=== PATIENT | female | born 1995 | race Two or more races ===

== ENCOUNTER 2020-09-22 21:19 | Inpatient (IN) | payer SELFPAY ==
[2020-09-22] MEDS ORDERED: Furosemide 40 MG/4 ML VIAL ONE (22:12)
[2020-09-22 22:58] LABS: Anion Gap 13 mmol/L (10-20); BUN (Urea Nitrogen) 37 mg/dL (7.0-18.7); Calc. Creatinine Clearance 0 mL/min (70-130); Calcium 7.8 mg/dL (7.8-10.44); Carbon Dioxide 21 mmol/L (22-29); Chloride 111 mmol/L (98-107); Glucose 178 mg/dL (70-105); Potassium 4.1 mmol/L (3.5-5.1); Sodium 141 mmol/L (136-145)
[2020-09-23] MEDS ORDERED: Ondansetron ODT 4 MG TAB SL PRN (00:30)
[2020-09-23] MEDS ORDERED: Acetaminophen 325 MG TAB PO PRN ×2 (00:30→20:40)
[2020-09-23] MEDS ORDERED: Ondansetron PF 4 MG/2 ML Vial IVP PRN (00:30)
[2020-09-23 01:38] LABS: Troponin I 0.026 ng/mL (< 0.028)
[2020-09-23] MEDS ORDERED: HumaLOG 300 UNITS/3 ML VIAL SC PRN ×2 (01:48→09:25)
[2020-09-23] MEDS ORDERED: Dextrose 50% Abboject 50 ML SYRINGE SLOW IVP PRN (01:48)
[2020-09-23] MEDS ORDERED: Dextrose 5% in Water 1,000 ML IV PRN (01:48)
--- NOTE | 2020-09-23 02:05 | PDOC.HHP ---
Hospitalist HPI - History of Present Illness Shortness of breath History of Present Illness: This is a 25-year-old female patient with a history of diabetes mellitus, hypertension and CKD who was transferred from [place] on account of possible bilateral pneumonia. For her diabetes and hypertension is unclear whether she has been adherent to her medication Patient notes that for the past couple of weeks she has been having worsening shortness of breath and more recently intermittent cough. She also notes swelling of his feet which progressed all the way to her thigh. She went to [place] where she was assessed to have possible bilateral pneumonia with concerns for Covid. She was started on ceftriaxone and azithromycin. She had elevated blood pressures also received labetalol and Solu-Medrol. Her D-dimer was elevated at 2.86 and she was given 80 mg Lovenox subcut. She was transferred here for higher level care. At presentation here it was noted her BNP was significantly elevated at 837, troponin was 0.014. Creatinine was 2.85 from a baseline of 1.08 on 05/22/2019. Her Covid test turned out negative. She was given 20 mg Lasix and she diuresed over 2 L. She feels significantly better thereafter. Hospitalist team was consulted to admit for new onset heart failure. Hospitalist ROS - Review of Systems Constitutional: reports: malaise. denies: fever, chills, sweats, weakness Respiratory: reports: cough, shortness of breath, SOB with excertion. denies: hemoptysis Cardiovascular: denies: chest pain, palpitations, orthopnea, paroxysmal noc. dyspnea Gastrointestinal: denies: nausea, vomiting, abdominal pain, diarrhea Genitourinary: reports: other (Polyuria). denies: dysuria, frequency, incontinence, hematuria Neurological: denies: weakness, numbness, incoordination, change in speech All other systems reviewed; all pertinent +/- noted in HPI/Subj Hospitalist History - Past Medical History Other Medical History: Diabetes, hypertension, CKD - Past Surgical History Past Surgical History: reports: no pertinent history Other Surgical History: None - Family History Family History: reports: no pertinent history - Social History Smoking Status: Never smoker Alcohol: reports: None Drugs: reports: none Living Situation: With Family Activity level: independent ambulation - Exam General Appearance: awake alert Eye: PERRL, anicteric sclera ENT: normocephalic atraumatic Neck: supple, symmetric, no JVD Heart: RRR, no murmur, no gallops, no rubs Respiratory: CTAB, no wheezes, no rales, no ronchi Gastrointestinal: soft, non-tender, non-distended, normal bowel sounds Extremities: no cyanosis, no clubbing, 1+ LE edema Neurological: cranial nerve grossly intact, no weakness, no focal deficits Musculoskeletal: normal tone, normal strength, no muscle wasting Psychiatric: normal affect, normal behavior, A&O x 3 Hospitalist Results - Labs Result Diagrams: 09/24/20 04:25 09/24/20 04:25 Lab results: Sodium 141 mmol/L (136-145) 09/22/20 22:30 Potassium 4.1 mmol/L (3.5-5.1) 09/22/20 22:30 Chloride 111 mmol/L (98-107) H 09/22/20 22:30 Carbon Dioxide 21 mmol/L (22-29) L 09/22/20 22:30 BUN 37 mg/dL (7.0-18.7) H 09/22/20 22:30 Creatinine 2.85 mg/dL (0.6-1.1) H 09/22/20 22:30 Glucose 178 mg/dL (70-105) H 09/22/20 22:30 Calcium 7.8 mg/dL (7.8-10.44) 09/22/20 22:30 Troponin I 0.026 ng/mL (< 0.028) 09/23/20 01:05 B-Natriuretic Peptide 837.7 pg/mL (0-100) H 09/22/20 22:31 Hospitalist H&P A/P - Plan Plan: This a 25-year-old female patient with a history of diabetes mellitus, CKD and hypertension who presents with worsening shortness of breath. Chest x-ray, elevated BNP and symptoms relieved with diuresis suggests new onset CHF. New onset CHF Edema, elevated D-dimer with congestion on chest x-ray Unclear etiologypossibly uncontrolled hypertension, check urine drug screen Received Lasix with improvement Continue diuresis Monitor on telemetry Daily weights, monitor electrolytes Input output monitoring Cardiology consult in a.m. MERLYN on CKD Creatinine elevated to 2.85 from around 1. Likely cardiorenal Continue diuresis Monitor BMP in a.m. Renal consult if worsens. Diabetes mellitus Start correctional insulin Monitor glucose Hypertension Resume home BP medications once verified. Elevated D-dimer Received note Lovenox in [place] Renal function poorunable to do CTA Consider VQ scan in a.m. to rule out PE VT prophylaxisHeparin CODE STATUSfull code
[2020-09-23 04:59] LABS: Anion Gap 12 mmol/L (10-20); BUN (Urea Nitrogen) 35 mg/dL (7.0-18.7); Calc. Creatinine Clearance 0 mL/min (70-130); Calcium 7.6 mg/dL (7.8-10.44); Carbon Dioxide 18 mmol/L (22-29); Chloride 113 mmol/L (98-107); Glucose 168 mg/dL (70-105); Magnesium 2.3 mg/dL (1.6-2.6); Mean Corpuscular HGB CONC 31.2 g/dL (32.0-36.0); Mean Corpuscular Hemoglobin 23.2 pg (27.0-31.0); Mean Corpuscular Volume 74.4 fL (78.0-98.0); Mean Platelet Volume 10.6 fL (7.4-10.4); Platelet Count 252 thou/uL (130-400); RBC Distribution Width 17.3 % (11.5-14.5); Red Blood Cell (RBC) Count 3.02 mill/uL (4.20-5.40); Sodium 139 mmol/L (136-145); White Blood Cell (WBC) Count 10.1 thou/uL (4.8-10.8)
[2020-09-23 05:04] LABS: Troponin I 0.019 ng/mL (< 0.028)
[2020-09-23 05:41] LABS: #Basophils 0.1 thou/uL (0.0-0.2); #Eosinphils 0.2 thou/uL (0.0-0.7); #Lymphocytes 3.1 thou/uL (1.20-3.40); #Monocytes 0.6 thou/uL (0.11-0.59); #Neutrophils 6.2 thou/uL (1.40-6.50); %Basophils 0.7 % (0.0-1.0); %Lymphocytes 30.9 % (21.0-51.0); %Monocytes 5.5 % (0.0-10.0); %Neutrophils 60.8 % (42.0-75.0); Anisocytosis SLIGHT = 6-15 cells (100X) (0-5/hpf); Hypochromia SLIGHT = 6-15 cells (100X) (0-5/hpf); MDiff Complete? YES; Microcytosis SLIGHT = 6-15 cells (100X) (0-5/hpf); Schistocytes SLIGHT = 2-5 cells (100X) (0-1/hpf)
[2020-09-23] MEDS ORDERED: Amlodipine 10 MG TAB PO SCH (09:00)
[2020-09-23] MEDS ORDERED: Aspirin Chewable 81 MG TAB PO SCH (09:00)
[2020-09-23] MEDS ORDERED: Carvedilol 3.125 MG TAB PO SCH (09:00)
[2020-09-23] MEDS ORDERED: Heparin 5,000 UNITS/ML VIAL SC SCH (09:00)
[2020-09-23] MEDS ORDERED: Enoxaparin Sodium 80 MG/0.8 ML SYRINGE SC SCH ×3 (09:00→21:00)
[2020-09-23] MEDS ORDERED: Furosemide 40 MG/4 ML VIAL SLOW IVP SCH ×2 (09:00)
--- NOTE | 2020-09-23 09:33 | PDOC.HOSPP ---
- Subjective Encounter Date: 09/23/20 Encounter Time: 09:31 Subjective: Patient seen and examined. No new complaints. No overnight events. Patient says she is feeling much better. She is able to breath when laying flat. Still endorses mild SOB and swelling to LEs. Denies chest pain, heart palpitations, light headedness, abdominal pain, N/V/D. Denies urinary symptoms. Discussed labwork. No further questions at this time. - Objective Vital Signs & Weight: Vital Signs (12 hours) Temp Pulse Resp BP Pulse Ox 09/23/20 00:00 98.7 F 110 H 17 168/102 H 99 Weight Weight 177 lb Result Diagrams: 09/23/20 04:20 09/23/20 04:20 Additional Labs: Accuchecks 09/23/20 05:45 POC Glucose 145 H Radiology Reviewed by me: Yes (cxr) Hospitalist ROS - Review of Systems Constitutional: denies: fever, chills All other systems reviewed; all pertinent +/- noted in HPI/Subj - Medication Medications: Medication Instructions Recorded Confirmed Type HumaLOG 0 unit SC ASDIR 09/23/20 09/23/20 History Insulin Glargine,Hum.Rec.Anlog 15 units SQ BID 09/23/20 09/23/20 History [Lantus] Lisinopril 30 mg PO DAILY 09/23/20 09/23/20 History Allergies No Known Drug Allergies Allergy (Unverified 09/23/20 00:20) Active Medications Aspirin (Aspirin Chewable 81 Mg Tab) 81 mg PO DAILY DAGMAR Carvedilol (Carvedilol 3.125 Mg Tab) 3.125 mg PO BID DAGMAR Dextrose/Water (Dextrose 50% Abboject 50 Ml Syringe) 25 gm SLOW IVP PRN PRN PRN Reason: Hypoglycemia Enoxaparin Sodium (Enoxaparin Sodium 80 Mg/0.8 Ml Syringe) 80 mg SC 2100 DAGMAR Furosemide (Furosemide 40 Mg Tab) 40 mg PO 0900,1400 DAGMAR Glucagon (Glucagon 1 Mg/Ml Vial) 1 mg IM PRN PRN PRN Reason: Hypoglycemia Hydralazine HCl (Hydralazine 20 Mg/Ml Vial) 10 mg SLOW IVP Q4H PRN PRN Reason: SBP > 180 Dextrose/Water (D5w) 1,000 mls @ 0 mls/hr IV .Q0M PRN PRN Reason: Hypoglycemia Insulin Glargine 15 units/ (Miscellaneous Medication) 0.15 mls @ 0 mls/hr SC QAM DAGMAR Insulin Glargine 15 units/ (Miscellaneous Medication) 0.15 mls @ 0 mls/hr SC HS DAGMAR Insulin Human Lispro (Humalog 300 Units/3 Ml Vial) 0 units SC .MILD SLIDING SCALE PRN PRN Reason: Mild Correctional Scale Insulin Human Lispro (Humalog 300 Units/3 Ml Vial) 0 units SC .BEDTIME SLIDING SC PRN PRN Reason: Bedtime Correctional Scale Ondansetron HCl (Ondansetron Pf 4 Mg/2 Ml Vial) 4 mg IVP Q6H PRN PRN Reason: Nausea/Vomiting Stop: 09/23/20 11:10 Ondansetron HCl (Ondansetron Odt 4 Mg Tab) 4 mg SL Q6H PRN PRN Reason: Nausea/Vomiting Stop: 09/23/20 11:10 Vital Signs (12 hours) Temp Pulse Resp BP Pulse Ox 09/23/20 00:00 98.7 F 110 H 17 168/102 H 99 Weight Weight 177 lb 09/23/20 01:27 Resuscitation Status Routine Resuscitation Status: FULL: Full Resuscitation - Exam General Appearance: NAD, awake alert. negative: ill appearing Eye: anicteric sclera ENT: normocephalic atraumatic Neck: supple, no JVD Heart: no murmur, no gallops, no rubs, normal peripheral pulses Heart - other findings: tachycardia Respiratory: no wheezes, no ronchi, no tachypnea, rales Gastrointestinal: soft, non-tender, non-distended, normal bowel sounds, no guarding, no rigidity Extremities: 2+ LE edema Skin: no rashes Neurological: no focal deficits Musculoskeletal: normal tone, normal strength Psychiatric: normal affect, A&O x 3 Hosp A/P (1) Acute exacerbation of CHF (congestive heart failure) Code(s): I50.9 - HEART FAILURE, UNSPECIFIED Status: Acute (2) Acute kidney injury superimposed on chronic kidney disease Code(s): N17.9 - ACUTE KIDNEY FAILURE, UNSPECIFIED; N18.9 - CHRONIC KIDNEY DISEASE, UNSPECIFIED Status: Acute (3) Shortness of breath Code(s): R06.02 - SHORTNESS OF BREATH Status: Acute (4) Elevated d-dimer Code(s): R79.89 - OTHER SPECIFIED ABNORMAL FINDINGS OF BLOOD CHEMISTRY Status: Acute (5) Diabetes mellitus type 2, insulin dependent Code(s): E11.9 - TYPE 2 DIABETES MELLITUS WITHOUT COMPLICATIONS; Z79.4 - [employer] (CURRENT) USE OF INSULIN Status: Chronic (6) Hypertension Code(s): I10 - ESSENTIAL (PRIMARY) HYPERTENSION Status: Chronic - Plan 25/F with PMH DM 2, HTN presents for SOB and BLE swelling. Patient is admitted to the telemetry floor, inpatient status. Expected length of stay greater than 2 midnights. 1. Acute exacerbation of CHF Unknown etiology. Upon examination, no acute distress. Per ER documentation, 2L UOP status post Lasix 40 mg IVP. Patient reports symptoms significantly improved. Start Lasix 40 mg IVP twice daily. Echocardiogram. Consult cardiology. Patient tachycardic, concerns for PE secondary to elevated D-dimer. Add low-dose beta-vielka, troponins flat, no signs cardiogenic shock. Hold LMWH secondary to anemia. Hold home dose PETE inhibitor for now. Daily weights, strict CARLOS, sodium restriction. Check TSH, FLP, PT/INR, serum , UDS pending. Recheck BMP this afternoon. 2. Acute kidney injury imposed on chronic kidney disease Reports recently completing multiple antibiotic regimens due to tooth infection in late June/early July. Reports taking ciprofloxacin amoxicillin clindamycin and moxifloxacin. Denies any consistent usage of NSAIDs or diuretics. Denies any recent throat infection. Takes Lisinopril 30mg daily at home, hold for now. Unclear etiology at this point prerenal d/t problem #1? Slight improvement in kidney function, will continue to diurese. Consult nephrology. Check urine Na and creatine for FENA calc. Check protein/AG ratio and CK level. Renal US. Covid Ab and auto immune panel. Check coags, serum hCG and TSH 3. Shortness of breath Likely related to problem #1. Covid test negative. Check Ab for problem #1/#2. No elevated WBCs, unlikely pneumonia. 4. Elevated D-dimer Upon assessment, patient still tachycardic. No acute respiratory distress. Denies any chest pain. Hold LMWH secondary to anemia. Given chest x-ray, VQ scan likely low yield at present time. Consider VQ/CTA chest if improvement of CXR or kidney function. 5. Microcytic anemia No overt signs of bleeding. Check iron studies, retic count. Check LDH, haptoglobin, bilirubin. T&S. 5. Diabetes type 2 Currently blood glucose 168. Takes Lantus 15/20 units twice daily at home. We will start Lantus 15 units twice daily. Add mild ISS. Accu-Cheks AC at bedtime. Check hemoglobin A1c. 6. Hypertension Chronic. Hold home dose lisinopril 30 mg daily for now secondary to MERLYN. Add low-dose BB. Check FLP, hemoglobin A1c. Add low-dose aspirin. No SCDs LMWH for DVT prophylaxis. CODE STATUS is Full code. Discussed case with attending physician, Dr. Gonzalez.
[2020-09-23 09:45] LABS: BHCG - Serum Negative (NEGATIVE); Pregs Control Background? CLEAR/WHITE (CLR/WHITE); Pregs Control Bar Appear? YES (CONTROL BAR)
[2020-09-23 09:49] LABS: PTT 34.3 sec (22.9-36.1); Prothrombin Time 13.6 sec (12.0-14.7)
[2020-09-23] MEDS ORDERED: Aspirin Chewable 81 MG TAB ONE (10:10)
[2020-09-23] MEDS ORDERED: Furosemide 40 MG TAB ONE ×2 (10:10→13:40)
[2020-09-23] MEDS: Insulin Glargine 15 UNITS in Pre-Filled Syringe 1 EACH SC SCH ×2 (10:14→22:36)
[2020-09-23] MEDS ORDERED: Furosemide 40 MG TAB PO SCH ×2 (10:15→14:00)
[2020-09-23 10:33] LABS: Reticulocyte Count 3.3 % (0.5-1.5)
[2020-09-23 11:10] LABS: ALT (SGPT) 17 U/L (8-55); AST (SGOT) 8 U/L (5-34); Albumin 2.7 g/dL (3.5-5.0); Alkaline Phosphatase 60 U/L (40-110); Bilirubin, Direct 0.1 mg/dL (0.1-0.3); Bilirubin, Total 0.2 mg/dL (0.2-1.2); CK (CPK) 202 U/L (29-168); Iron 24 ug/dL (50-170); Iron Binding Capacity, Total 260 mcg/dL (265-497)
[2020-09-23 12:49] LABS: Albumin 2.7 g/dL (3.5-5.0); Anion Gap 17 mmol/L (10-20); BUN (Urea Nitrogen) 32 mg/dL (7.0-18.7); Calc. Creatinine Clearance 42 mL/min (70-130); Calcium 7.5 mg/dL (7.8-10.44); Carbon Dioxide 13 mmol/L (22-29); Chloride 115 mmol/L (98-107); Globulin 2.9 g/dL (2.4-3.5); Glucose 134 mg/dL (70-105); Potassium 4.3 mmol/L (3.5-5.1); Protein, Total 5.6 g/dL (6.0-8.3); Sodium 141 mmol/L (136-145)
[2020-09-23 12:52] LABS: Medtox Reader # READER 1; THC/Cannabinoid Screen Detected (NotDetected)
[2020-09-23 12:53] LABS: Amphetamine Not Detected (NotDetected); Barbiturates Screen Not Detected (NotDetected); Benzodiazepine Screen Not Detected (NotDetected); Cocaine Metabolite Screen Not Detected (NotDetected); Medtox Control Line Valid? VALID (VALID); Methadone Not Detected (NotDetected); Methamphetamine Not Detected (NotDetected); Opiate Screen Detected (NotDetected); Oxycodone Screen Not Detected (NotDetected); Phencyclidine (PCP) Not Detected (NotDetected); Tricyclic Screen Not Detected (NotDetected)
[2020-09-23 12:58] LABS: Creatinine, Urine 68.07 mg/dL (47-110)
[2020-09-23] MEDS: Bicitra 30 ML UDCUP PO SCH ×3 (13:59→21:11)
[2020-09-23] MEDS: Iron, Sodium Ferric Gluconate 250 MG in Sodium Chloride 0.9% 100 ML IVPB SCH (13:59)
[2020-09-23] MEDS ORDERED: Bicitra 30 ML UDCUP PO SCH (14:00)
--- NOTE | 2020-09-23 14:35 | ULT ---
Renal sonogram HISTORY: Renal insufficiency. FINDINGS: The right kidney is 12.4 cm length and the left 12.3 cm. Each has a normal appearance without evidenc e of mass, stone, or hydronephrosis. Small amount of fluid is incidentally noted at the inferior aspect of each hemithorax. IMPRESSION : No renal abnormalities are demonstrated. Small bilateral pleural effusions
[2020-09-23 16:59] LABS: SARS-CoV-2 IgG Ab Reactive (NonReactive); SARS-CoV-2 IgG Index 2.93 S/CO (< 1.40)
[2020-09-23] MEDS ORDERED: NIFEdipine XL 30 MG TAB PO SCH (18:15)
[2020-09-23 19:36] VITALS: BMI 36.4
[2020-09-23] MEDS: Carvedilol 6.25 MG TAB PO SCH (21:12)
[2020-09-23] MEDS: hydrALAZINE 20 MG/ML VIAL SLOW IVP PRN (22:35)
--- NOTE | 2020-09-23 22:51 | CON ---
DATE OF CONSULTATION: 09/23/2020 REASON FOR CONSULTATION: Hypertension, diabetes, possible heart failure. HISTORY OF PRESENT ILLNESS: Ms. Bee is a 25-year-old woman. The patient came to the hospital complaining of shortness of breath, but she tells me actually it was primarily a cough. She also noticed some swelling of her feet. The patient had possible bilateral pneumonia on chest x-ray. There was some initial concern for COVID. She was given antibiotics and transferred here. Her D-dimer was also elevated. She was found to have a BNP of 837, troponin 0.04. Creatinine was 1.08 in May 2019, now 2.85. She is given Lasix and diuresed 2 L, felt better. HOME MEDICINES: Lisinopril. She is also taking insulin. OTHER PAST HISTORY: Recent infection of her jaw below a tooth requiring some oral surgery recently done successfully. Diabetes for about nine years, hypertension for about nine years. REVIEW OF SYSTEMS: CONSTITUTIONAL: No significant weight gain or loss. VISION: No changes. HEARING: No changes. PULMONARY: Positive for cough. Previously short of breath, not short of breath now. NEUROLOGIC: No unilateral weakness or numbness. PHYSICAL EXAMINATION: GENERAL: This is a pleasant woman. VITAL SIGNS: 5 feet 6 inches tall, 177 pounds. Blood pressure 182/111, pulse 100. NECK: Veins normal. Carotid, normal upstrokes. LUNGS: Clear. CARDIAC: Normal S1, normal S2. I do not hear murmur, rub, or gallop. ABDOMEN: Obese, nontender. EXTREMITIES: No clubbing or cyanosis. There is 1+ edema. LABORATORY STUDIES: Echocardiogram showed left ventricular hypertrophy with an ejection fraction only very mildly diminished at 45-50%, but there is moderate to severe left ventricular hypertrophy. EKG reveals sinus rhythm, no acute changes. ASSESSMENT: 1. Hypertension, uncontrolled. 2. Diabetes. 3. Congestive heart failure as evidenced by increased BNP at 837, systolic-diastolic mix, mostly diastolic. 4. Iron deficiency anemia with a ferritin level extremely low at 28 and a hemoglobin of 7. PLAN: 1. Agree with intravenous iron. 2. Hold anticoagulation in view of anemia. 3. Hold aspirin in view of iron deficiency anemia, unlikely to have coronary disease at this age. 4. Agree with carvedilol. 5. We will start Procardia XL, it should be helpful with her high blood pressure, it looks like probably her main problem from a heart standpoint is hypertension, also contributory factor likely is anemia. Job ID: [id number]
[2020-09-24] MEDS: Iron, Sodium Ferric Gluconate 250 MG in Sodium Chloride 0.9% 100 ML IVPB SCH (00:15)
[2020-09-24] MEDS: hydrALAZINE 20 MG/ML VIAL SLOW IVP PRN (04:35)
[2020-09-24 04:42] LABS: #Basophils 0.1 thou/uL (0.0-0.2); #Eosinphils 0.3 thou/uL (0.0-0.7); #Lymphocytes 1.8 thou/uL (1.20-3.40); #Monocytes 0.5 thou/uL (0.11-0.59); #Neutrophils 6.9 thou/uL (1.40-6.50); %Basophils 0.9 % (0.0-1.0); %Eosinophils 3.5 % (0.0-10.0); %Lymphocytes 18.2 % (21.0-51.0); %Monocytes 5.6 % (0.0-10.0); %Neutrophils 71.8 % (42.0-75.0); Hemoglobin 7.4 g/dL (12.0-16.0); Mean Corpuscular HGB CONC 30.2 g/dL (32.0-36.0); Mean Corpuscular Hemoglobin 22.3 pg (27.0-31.0); Mean Platelet Volume 10.9 fL (7.4-10.4); Platelet Count 260 thou/uL (130-400); RBC Distribution Width 17.3 % (11.5-14.5); Red Blood Cell (RBC) Count 3.32 mill/uL (4.20-5.40); White Blood Cell (WBC) Count 9.6 thou/uL (4.8-10.8)
[2020-09-24 04:46] LABS: Hemoglobin A1c 5.7 % (4.0-6.0)
[2020-09-24 05:08] LABS: Albumin 2.6 g/dL (3.5-5.0); Anion Gap 13 mmol/L (10-20); BUN (Urea Nitrogen) 30 mg/dL (7.0-18.7); BUN/Creatinine Ratio 14.02; Calc. Creatinine Clearance 63 mL/min (70-130); Calcium 7.9 mg/dL (7.8-10.44); Carbon Dioxide 20 mmol/L (22-29); Cardiac Risk 4.4 (Less than 4.5); Chloride 111 mmol/L (98-107); Cholesterol 176 mg/dl (< 200 Desired); Glucose 130 mg/dL (70-105); HDL Cholesterol 40 mg/dL (>60 Neg Risk); LDL Cholesterol, Calculated 106 mg/dL; Phosphorus 4.1 mg/dL (2.3-4.7); Potassium 3.8 mmol/L (3.5-5.1); Sodium 140 mmol/L (136-145); Triglycerides 149 mg/dL (Less than 150)
[2020-09-24] MEDS ORDERED: Furosemide 20 MG/2 ML VIAL SLOW IVP SCH ×2 (06:00→18:00)
--- NOTE | 2020-09-24 07:21 | CON ---
DATE OF CONSULTATION: CONSULTING PHYSICIAN: Hao Mendoza MD REASON FOR CONSULTATION: Acute on chronic kidney disease and generalized body swelling. IMPRESSION: 1. Acute on chronic kidney disease. 2. Chronic kidney disease, likely in the context of diabetic nephropathy. 3. Generalized anasarca, likely in the context of the proteinuria from diabetic nephropathy. 4. Severe anemia in the context of iron deficiency and possibly anemia of chronic kidney disease. 5. Metabolic acidosis, possibly in the context of chronic kidney disease. PLAN: 1. Low-salt diet. 2. Parenteral diuresis. 3. Renal function panel as opposed to basic metabolic panel, also check parathyroid hormone and vitamin D level. 4. Parenteral iron infusion to increase the iron load of this patient, plus or minus erythropoiesis stimulating agents. 5. We will check the spot urine protein and creatinine to assess the degree of proteinuria in this patient and treat accordingly. 6. Further management to be dependent on the clinical course. The patient is already on sodium to address the metabolic acidosis. HISTORY OF PRESENT ILLNESS: A 25-year-old female patient who presented here with generalized body swelling and shortness of breath and on close evaluation, noted to have evidence of metabolic acidosis and possibly baseline chronic kidney disease. She has been evaluated with the echocardiogram which showed mildly depressed ejection fraction with concentric hypertrophy diastolic dysfunction. As a result of the findings involving the renal panel, decision was taken to involve Renal in the management of this case. The patient denies any hematuria nor any frothy urine. PAST MEDICAL HISTORY: Significant for diabetes mellitus in the age of 16, hypertension, chronic kidney disease. FAMILY HISTORY: Significant for an uncle also had problem with kidney . SOCIAL HISTORY: No alcohol, no tobacco, no illicit drug use. REVIEW OF SYSTEMS: As documented in the body of the history. All the other systems were reviewed and found not to be significantly related to present illness. PHYSICAL EXAMINATION: VITAL SIGNS: The patient was found to have evidence of generalized body swelling with the following vital signs. Afebrile, temperature 99.6, pulse 99, respiratory rate of 18, blood pressure 182/111, O2 saturation of 97% on room air. HEENT: Unremarkable. CARDIOVASCULAR SYSTEM: First and second heart sounds were heard. RESPIRATORY SYSTEM: Clear to auscultation. DIGESTIVE SYSTEM: Revealed an obese abdomen. EXTREMITIES: Showed peripheral edema, 2 to 3+ SUMMARY: A 25-year-old female patient who presented here with generalized anasarca, shortness of breath. Thank you for this consultation. We will follow with you. Job ID: [id number]
[2020-09-24] MEDS ORDERED: NIFEdipine XL 30 MG TAB PO SCH (09:00)
[2020-09-24] MEDS ORDERED: IRON SUCROSE COMPLEX 100 MG/5 ML SLOW IVP SCH (09:00)
[2020-09-24] MEDS ORDERED: Ondansetron PF 4 MG/2 ML Vial IVP PRN (09:31)
[2020-09-24] MEDS: Carvedilol 6.25 MG TAB PO SCH ×2 (09:39→20:53)
[2020-09-24] MEDS: Insulin Glargine 15 UNITS in Pre-Filled Syringe 1 EACH SC SCH ×2 (09:41→20:54)
[2020-09-24] MEDS: Bicitra 30 ML UDCUP PO SCH ×4 (09:42→20:53)
[2020-09-24] MEDS: Iron, Sodium Ferric Gluconate 125 MG in Sodium Chloride 0.9% 100 ML IVPB SCH (10:00)
--- NOTE | 2020-09-24 14:31 | PRG ---
DATE OF SERVICE: 09/24/2020 SUBJECTIVE: Ms. Bee is feeling better. She has been diuresing very well. OBJECTIVE: VITAL SIGNS: Blood pressure is improving. It is 167/100. It is more than 190 systolic yesterday, 190/110. Pulse is improving. It is in the 90s. It was about 100 to 110 yesterday. LUNGS: Clear. CARDIAC: Normal S1, normal S2. No murmur, rub, or gallop. ABDOMEN: Obese, nontender. EXTREMITIES: Still moderate edema. ASSESSMENT: 1. Congestive heart failure, systolic diastolic mixed, mostly diastolic likely related to hypertension. 2. Renal failure, improving. Creatinine has gone from 2.85 down to 2.14. PLAN: 1. She is still volume overloaded. I would give her one additional dose of Lasix 20 mg. 2. She has been given iron. She is iron deficient and has an iron deficiency anemia. She will need oral iron as well. 3. Possibly could be released home tomorrow. Job ID: [id number]
--- NOTE | 2020-09-24 18:06 | PDOC.HOSPP ---
- Subjective Encounter Date: 09/24/20 Encounter Time: 09:00 Subjective: F/u: CHF The patient states her shortness of breath has improved. She is now able to lean back more at 45 degrees which she wasn't able to do before. She has no significant cough She has had multiple tooth infections, last antibiotics were taken in July. She denies jaw pain currently - Objective Vital Signs & Weight: Vital Signs (12 hours) Temp Pulse Pulse Pulse Resp BP BP 09/24/20 15:40 98.9 F 109 H 16 09/24/20 11:15 98.7 F 99 16 09/24/20 09:18 112 H 108 H 185/99 H 190/91 H 09/24/20 07:40 98.9 F 109 H 16 BP Pulse Ox 09/24/20 15:40 172/96 H 97 09/24/20 11:15 167/100 H 98 09/24/20 09:18 09/24/20 07:40 179/90 H 95 Weight Weight 223 lb 9.6 oz I&O: 09/23/20 09/24/20 09/25/20 06:59 06:59 06:59 Intake Total 1600 1000 Balance 1600 1000 Result Diagrams: 09/24/20 04:25 09/24/20 04:25 Additional Labs: Accuchecks 09/24/20 09/24/20 09/24/20 16:27 10:57 05:25 POC Glucose 118 H 106 H 127 H 09/23/20 21:00 POC Glucose 136 H Hospitalist ROS - Review of Systems Constitutional: denies: fever, chills - Medication Medications: Active Medications Generic Name Dose Route Start Last Admin Trade Name Chipq PRN Reason Stop Dose Admin Acetaminophen 650 mg 09/23/20 20:40 09/24/20 09:49 Acetaminophen 325 Mg Tab PO 650 mg Q6H PRN Administration Fever>101/(Mi/Mod/Sev) Pain Carvedilol 6.25 mg 09/23/20 21:00 09/24/20 09:39 Carvedilol 6.25 Mg Tab PO 6.25 mg BID DAGMAR Administration Citric Acid/Sodium Citrate 30 ml 09/23/20 13:00 09/24/20 17:57 Bicitra 30 Ml Udcup PO 30 ml PCHS DAGMAR Administration Hydralazine HCl 10 mg 09/23/20 02:26 09/24/20 04:35 Hydralazine 20 Mg/Ml Vial SLOW IVP 10 mg Q4H PRN Administration SBP > 180 Insulin Glargine 15 units/ 0.15 mls @ 0 mls/hr 09/23/20 09:00 09/24/20 09:41 Miscellaneous Medication SC 0.15 mls QAM DAGMAR Administration Insulin Glargine 15 units/ 0.15 mls @ 0 mls/hr 09/23/20 21:00 09/23/20 22:36 Miscellaneous Medication SC 0.15 mls HS DAGMAR Administration Ferric Sodium Gluconate 110 mls @ 110 mls/hr 09/24/20 09:00 09/24/20 10:00 Complex 125 mg/ Sodium IVPB 110 mls Chloride DAILY DAGMAR Administration Ondansetron HCl 4 mg 09/24/20 09:31 09/24/20 09:42 Ondansetron Pf 4 Mg/2 Ml Vial IVP 4 mg Q6H PRN Administration Nausea/Vomiting - Exam General Appearance: NAD, awake alert Eye: PERRL, anicteric sclera ENT: normocephalic atraumatic, no oropharyngeal lesions Neck: no JVD Heart: RRR, no murmur, no gallops, no rubs Respiratory: CTAB, no wheezes, no rales, no ronchi Gastrointestinal: soft, non-tender, non-distended, normal bowel sounds Extremities: no cyanosis, no clubbing, 2+ LE edema Skin: normal turgor, no lesions, no rashes Hosp A/P - Plan Chest Xray: bilateral ground glass opacities Thi sis a 25 year old female who presented with shortness of breath, cough and leg swelling. She was diagnosed with systolic heart failure. SHe is being diuresed with IV lasix 1. Acute systolic and diastolic CHF - ECHO showed EF 45-50% with moderate MR, grade 3 diastolic dysfunction. - continue IV lasix for additional dose. She is on room air . Repeat chest Xray to evaluate for improvement 2. MERLYN - improving, creatinine down to 2.1, baseline is around 1 last year. 3. Severe anemia likely iron deficiency - ferritin level is 23. Will start iron supplementation. GI consultation if any GI bleeding 4. Type II diabetes - controlled, hemoglobin A1C 5.7. Continue lantus 15 units SC BID 5. Hypertension - continue coreg. Nifedipine added by cardiology . Will add hydralazine 25 mg tid if BP still uncontrolled with this 6. Possible recent COVID infection - chest Xray shows bilateral ground glass opacities. She has positive COVID IGG. Will repeat chest X ray today
[2020-09-24] MEDS ORDERED: hydrALAZINE 25 MG TAB PO PRN (18:11)
--- NOTE | 2020-09-24 18:43 | PRG ---
DATE OF SERVICE: 09/24/2020 OBJECTIVE: VITAL SIGNS: The patient noted with the following vital signs; afebrile, temperature 98.9, pulse 99, respiratory rate of 16, O2 saturations of 97%, and blood pressure 172/96. HEENT: Unremarkable. CARDIOVASCULAR SYSTEM: First and second heart sounds were heard. RESPIRATORY SYSTEM: Clear to auscultation. DIGESTIVE SYSTEM: Revealed obese abdomen. EXTREMITIES: Showed some peripheral edema. SKIN: No new gross rash. LYMPHATICS: No peripheral lymphadenopathy. IMPRESSION: 1. Nephrotic range proteinuria in the context of problem #2. 2. Diabetic nephropathy. 3. Iron deficiency anemia. 4. Anasarca. PLAN: 1. Continue diuresis. 2. The patient's beta blockade probably needs to be adjusted. However, the tachyarrhythmia may be also related to the anemic state of this patient. 3. Renally dose all medications per low GFR. 4. Outpatient Nephrology followup status post discharge strongly recommend. Job ID: [id number]
[2020-09-24] MEDS ORDERED: Ferrous Sulfate 325 MG TAB PO SCH (18:45)
--- NOTE | 2020-09-24 18:50 | RAD ---
Exam: Chest one view HISTORY:Follow-up pulmonary edema. Comparison: 09/21/2020 FINDINGS: Cardiac silhouette:Cardiomegaly. Aorta: Unremarkable Pulmonary vessels: Normal Costophrenic angles: Clear LUNGS: Improved but persistent interstitial opacities. Pneumothorax: None Osseous abnormalities: None IMPRESSION: Improved but persistent interstitial opacities. Improving edema. Continued surveillance.
[2020-09-24] MEDS ORDERED: Ferrex 150 Plus (iron poly cmplx) PO SCH (21:00)
[2020-09-25 04:42] LABS: #Eosinphils 0.3 thou/uL (0.0-0.7); #Lymphocytes 2.1 thou/uL (1.20-3.40); #Monocytes 0.8 thou/uL (0.11-0.59); %Basophils 0.4 % (0.0-1.0); %Eosinophils 3.6 % (0.0-10.0); %Lymphocytes 22.8 % (21.0-51.0); %Monocytes 8.7 % (0.0-10.0); %Neutrophils 64.5 % (42.0-75.0); Hemoglobin 7.3 g/dL (12.0-16.0); Mean Corpuscular HGB CONC 31.1 g/dL (32.0-36.0); Mean Corpuscular Hemoglobin 23.1 pg (27.0-31.0); Mean Corpuscular Volume 74.4 fL (78.0-98.0); Mean Platelet Volume 10.6 fL (7.4-10.4); Platelet Count 267 thou/uL (130-400); Red Blood Cell (RBC) Count 3.15 mill/uL (4.20-5.40); White Blood Cell (WBC) Count 9.3 thou/uL (4.8-10.8)
[2020-09-25 04:59] LABS: Albumin 2.5 g/dL (3.5-5.0); Anion Gap 12 mmol/L (10-20); BUN (Urea Nitrogen) 24 mg/dL (7.0-18.7); BUN/Creatinine Ratio 12.24; Calc. Creatinine Clearance 69 mL/min (70-130); Carbon Dioxide 22 mmol/L (22-29); Chloride 111 mmol/L (98-107); Glucose 93 mg/dL (70-105); Phosphorus 4.5 mg/dL (2.3-4.7); Potassium 3.6 mmol/L (3.5-5.1); Sodium 141 mmol/L (136-145)
[2020-09-25] MEDS ORDERED: Furosemide 20 MG/2 ML VIAL SLOW IVP SCH (06:00)
[2020-09-25] MEDS: Ferrous Sulfate 325 MG TAB PO SCH ×2 (08:28→17:33)
[2020-09-25] MEDS: Carvedilol 6.25 MG TAB PO SCH (08:28)
[2020-09-25] MEDS ORDERED: Potassium Chloride 20 MEQ TAB PO SCH (08:30)
[2020-09-25] MEDS ORDERED: Carvedilol 6.25 MG TAB PO SCH (09:00)
[2020-09-25] MEDS ORDERED: NIFEdipine XL 30 MG TAB PO SCH (09:00)
[2020-09-25] MEDS: Insulin Glargine 15 UNITS in Pre-Filled Syringe 1 EACH SC SCH (09:35)
[2020-09-25] MEDS: Bicitra 30 ML UDCUP PO SCH ×2 (09:48→12:58)
[2020-09-25] MEDS: Iron, Sodium Ferric Gluconate 125 MG in Sodium Chloride 0.9% 100 ML IVPB SCH (09:52)
[2020-09-25 10:38] LABS: Antinuclear AB Negative (Negative); Complement-C3 (Sendout) 143 mg/dL (82-167); Complement-C4 (Sendout) 27 mg/dL (12-38); DSDNA Autoabs (FARR) Sendout 1 IU/mL (0-9); Smooth Muscle Total Antibodies <0.2 AI (0.0-0.9); Thyroid Peroxidase Ab-Sendout Less than 9 IU/mL (0-34); U1 RNP/snRNP IgG Autoabs 0.2 AI (0.0-0.9)
--- NOTE | 2020-09-25 12:54 | PDOC.HOSPP ---
- Subjective Encounter Date: 09/25/20 Encounter Time: 11:00 Subjective: CHF - patient reports significant improvement in shortness of breath. Anemia - patient is still anemic. She reports fatigue, didn't think much of it earlier , but does get tired doing a lot of activity. She reports going through 15 tampons a day, and four pads a day Left arm swelling - patient reports left arm swelling, states her IV blew in that area and she had some pain while moving her arm MERLYN - creatinine almost at baseline Diabetes - mother reports history of diabetes that was very uncontrolled in the past. She was started on insulin and has been on it for the past 9 years. A1C is 5.7. Her blood sugar was 79 this morning, so lantus was held - Objective Vital Signs & Weight: Vital Signs (12 hours) Temp Pulse Resp BP BP Pulse Ox 09/25/20 12:00 98.8 F 102 H 17 177/84 H 98 09/25/20 10:57 101 H 170/101 H 09/25/20 09:35 170/101 H 09/25/20 08:28 170/101 H 09/25/20 08:00 98.9 F 101 H 16 170/101 H 97 09/25/20 03:53 99.4 F 109 H 18 175/90 H 95 Weight Weight 222 lb 9.6 oz I&O: 09/24/20 09/25/20 09/26/20 06:59 06:59 06:59 Intake Total 1600 1360 Balance 1600 1360 Result Diagrams: 09/25/20 04:06 09/25/20 04:06 Additional Labs: Accuchecks 09/25/20 09/25/20 09/24/20 10:30 05:57 20:27 POC Glucose 95 79 147 H 09/24/20 16:27 POC Glucose 118 H Hospitalist ROS - Review of Systems Constitutional: denies: fever, chills - Medication Medications: Active Medications Generic Name Dose Route Start Last Admin Trade Name Freq PRN Reason Stop Dose Admin Acetaminophen 650 mg 09/23/20 20:40 09/24/20 09:49 Acetaminophen 325 Mg Tab PO 650 mg Q6H PRN Administration Fever>101/(Mi/Mod/Sev) Pain Carvedilol 12.5 mg 09/25/20 09:00 09/25/20 09:35 Carvedilol 6.25 Mg Tab PO 12.5 mg BID DAGMAR Administration Citric Acid/Sodium Citrate 30 ml 09/23/20 13:00 09/25/20 09:48 Bicitra 30 Ml Udcup PO 30 ml PCHS DAGMAR Administration Ferrous Sulfate 325 mg 09/25/20 08:00 09/25/20 08:28 Ferrous Sulfate 325 Mg Tab PO 325 mg BID-WM DAGMAR Administration Hydralazine HCl 10 mg 09/23/20 02:26 09/24/20 04:35 Hydralazine 20 Mg/Ml Vial SLOW IVP 10 mg Q4H PRN Administration SBP > 180 Insulin Glargine 15 units/ 0.15 mls @ 0 mls/hr 09/23/20 09:00 09/25/20 09:35 Miscellaneous Medication SC Not Given QAM DAGMAR Insulin Glargine 15 units/ 0.15 mls @ 0 mls/hr 09/23/20 21:00 09/24/20 20:54 Miscellaneous Medication SC 0.15 mls HS DAGMAR Administration Ferric Sodium Gluconate 110 mls @ 110 mls/hr 09/24/20 09:00 09/25/20 09:52 Complex 125 mg/ Sodium IVPB 110 mls Chloride DAILY DAGMAR Administration Nifedipine 60 mg 09/25/20 09:00 09/25/20 10:57 Nifedipine Xl 30 Mg Tab PO 60 mg DAILY DAGMAR Administration Ondansetron HCl 4 mg 09/24/20 09:31 09/24/20 09:42 Ondansetron Pf 4 Mg/2 Ml Vial IVP 4 mg Q6H PRN Administration Nausea/Vomiting - Exam General Appearance: NAD, awake alert Eye: PERRL, anicteric sclera ENT: normocephalic atraumatic, no oropharyngeal lesions Neck: no JVD Heart: RRR, no murmur, no gallops, no rubs Respiratory: CTAB, no rales, no ronchi, tachypneic Gastrointestinal: negative: soft, non-tender, non-distended, normal bowel sounds, no palpable masses, no hepatomegaly, no splenomegaly, no bruit, no guarding, no rigidity, tender to palpation, distended, diminished bowl sounds, voluntary guarding Extremities: no edema Skin: normal turgor, no lesions, no rashes Hosp A/P - Plan Chest Xray 09/24: bilateral ground glass opacities Chest X ray 09/24: bilateral ground glass opacities Thi sis a 25 year old female who presented with shortness of breath, cough and leg swelling. She was diagnosed with systolic heart failure. SHe is being diuresed with IV lasix 1. Acute systolic and diastolic CHF - ECHO showed EF 45-50% with moderate MR, grade 3 diastolic dysfunction. -she has been switched to oral lasix 20 mg. Chest X ray 09/24 shows improvement 2. MERLYN - improving, creatinine down to 1.9, baseline around 1. Will recheck creatinine tomorrow 3. Severe anemia likely iron deficiency - ferritin level is 23. Will start iron supplementation. She did receive IV iron yesterday 09/24. GI consultation if any GI bleeding 4. Hypoglycemia/Type II diabetes - controlled, hemoglobin A1C 5.7. Will hold lantus today. Not even sure if still diabetic? 5. Hypertension - continue coreg. Nifedipine added by cardiology . Will add hydralazine 25 mg tid 6. Possible recent COVID infection - chest Xray shows bilateral ground glass opacities. She has positive COVID IGG. ChesT X ray improved
[2020-09-25] MEDS ORDERED: hydrALAZINE 25 MG TAB PO SCH (15:00)
[2020-09-25 15:16] VITALS: BP 166/89; TEMP 99.5
--- NOTE | 2020-09-25 19:35 | PRG ---
DATE OF SERVICE: 09/25/2020 OBJECTIVE: VITAL SIGNS: The patient noted with the following vital signs; afebrile, temperature 99.5, pulse 106, respiratory rate of 16, O2 saturations of 95%, blood pressure 150/89. HEENT: Unremarkable. CARDIOVASCULAR SYSTEM: First and second heart sounds were heard. RESPIRATORY SYSTEM: Clear to auscultation. DIGESTIVE SYSTEM: Revealed a benign abdomen with positive bowel sounds. EXTREMITIES: No peripheral edema. SKIN: No new gross rash. LYMPHATICS: No peripheral lymphadenopathy. IMPRESSION: 1. Advanced chronic kidney disease/acute on chronic kidney disease, much improved. 2. Anemia in the context of iron deficiency anemia of chronic kidney disease. 3. Nephrotic range proteinuria in the context of diabetic nephropathy. PLAN: 1. The patient seems to have done very well. 2. Outpatient Nephrology followup status post discharge strongly recommended. 3. Further management to be dependent on the clinical course. Job ID: [id number]
--- NOTE | 2020-09-25 20:25 | PDOC.DS.DS ---
Provider - Provider Date of Admission: 09/22/20 23:28 Date of Discharge: 09/25/20 Admitting Provider: Yao Hansen MD Consultations: Cardiology (Dr. Mayen), Nephrology (Hao Mendoza) Primary Care Physician: Taylor Mcgrath Course - Hospital Course Hospital Course: Discharge Diagnoses: 1. Acute systolic and diastolic CHF 2. MERLYN 3. Iron deficiency anemia 4. Hypoglycemia/type II diabetes 5. Hypertension 6. Recent COVID infection Brief HPI: This is a 25-year-old female who presented from an outside facility with cough and shortness of breath for the past 1 month. She was reported bilateral leg swelling. She presented to the ER and she was found to immediately have a hemoglobin of 7. Chest x-ray showed small bilateral pleural effusions. She has been to the hospital for further work-up. Hospital Course: Acute systolic and diastolic CHF: Patient was diuresed with IV Lasix. She had an echocardiogram done on 09/23 which showed an EF of 45 to 50%, grade 3 diastolic dysfunction, moderate to severe LVH. She has had moderate to severely elevated pulmonary artery pressure. She responded well with IV Lasix. Cardiology was consulted. Patient will be switched to Lasix 20 mg oral daily. She is advised to follow low-salt diet and avoid eating fried, junk and frozen foods. She was advised to follow-up with the PCP and get a repeat BMP in a week and consider following up with a heat set operator as well. MERLYN: Patient presented with a creatinine of 2.85. This is improved to 1.96 with IV diuretics. Renal ultrasound showed no abnormalities. I assume that this will normalize after she has received diuretics. Nephrology was consulted and she can consider following up with Dr. Mendoza as an outpatient. She should get a repeat BMP in a week Recent COVID+: Patient had bilateral interstitial opacities which could be from pulmonary edema. Covid PCR was negative but her antibodies were positive. Therefore explained that she possibly had a Covid infection recently. She can get a repeat chest Xray in 6 weeks. Iron deficiency anemia: Patient had a hemoglobin of 9.0. She was started on IV iron with improvement in her hemoglobin to 7.4. Her ferritin level was low at 23. She was discharged with iron supplementation. Patient was advised to consider seeing a TELEVISION AUDIO ENGINEER doctor for menorrhagia. Hypertension: Patient did have a persistently elevated blood pressure. In particular her diastolic was around 100. Patient's blood pressure improved to 166/89 on the day of discharge. She will be discharged with nifedipine, hydralazine 25 mg p.o. 3 times daily, Coreg 12.5 mg p.o. twice daily, iron sulfate 325 mg p.o. twice daily and Lasix 20 mg p.o. daily. She is to follow-up with her PCP in a week to have her blood pressure rechecked. Type II diabetes: Patient takes Lantus 15 units subcu twice daily at home. Her blood sugar was 79 in the morning, therefore her Lantus was held. He was advised to stop her morning Lantus and only take her Lantus at night and consider decreasing the dose to 11 units Pertinent Studies: Chest X ray: small bilateral pleural effusions Renal ultrasound: improved but persistent interstitial opacities. Improving edema Resuscitation Status: 09/23/20 01:27 Resuscitation Status Routine Resuscitation Status: FULL: Full Resuscitation - Labs Lab Results: 09/25/20 04:06 09/25/20 04:06 Abnormal Lab Results - Last 48 hrs 09/23/20 19:27: U Random Total Protein 343 H 09/24/20 04:24: PTH Intact 180.4 H 09/24/20 04:25: RBC 3.32 L, Hgb 7.4 L, Hct 24.6 L, MCV 74.0 L, MCH 22.3 L, MCHC 30.2 L, RDW 17.3 H, MPV 10.9 H, Lymphocytes % 18.2 L, Neutrophils # 6.9 H 09/24/20 04:25: Chloride 111 H, Carbon Dioxide 20 L, BUN 30 H, Creatinine 2.14 H, Albumin 2.6 L 09/25/20 04:06: Chloride 111 H, BUN 24 H, Creatinine 1.96 H, Albumin 2.5 L 09/25/20 04:06: RBC 3.15 L, Hgb 7.3 L, Hct 23.4 L, MCV 74.4 L, MCH 23.1 L, MCHC 31.1 L, RDW 17.0 H, MPV 10.6 H, Monocytes # 0.8 H - Physical Exam Vitals: Vital Signs (12 hours) Temp Pulse Pulse Pulse Resp BP BP 09/25/20 15:13 99.5 F 106 H 16 09/25/20 14:06 102 H 177/84 H 09/25/20 12:00 98.8 F 102 H 17 09/25/20 11:15 96 93 177/84 H 09/25/20 10:57 101 H 170/101 H 09/25/20 09:35 170/101 H 09/25/20 08:28 170/101 H BP BP Pulse Ox 09/25/20 15:13 166/89 H 95 09/25/20 14:06 09/25/20 12:00 177/84 H 98 09/25/20 11:15 167/94 H 09/25/20 10:57 09/25/20 09:35 09/25/20 08:28 Weight Weight 222 lb 9.6 oz Physical Exam: The patient was seen and examined on the day of discharge. General: patient is alert, awake, oriented times three CV: RRR, no murmurs, rubs, gallops ENT: no pharyngitis. Teeth appear normal with some cavities Lungs: CTAB Abdomen: +BS, soft, nontender, nondistended Extremities: mild edema Plan - Discharge Medications Prescriptions: NIFEdipine [Adalat cc] 60 mg PO DAILY #30 tablet.er hydrALAZINE [Apresoline] 25 mg PO TID #90 tab Carvedilol [Coreg] 12.5 mg PO BID #60 tablet Ferrous Sulfate [Feosol] 325 mg PO BID-WM #60 tab Furosemide [Lasix] 20 mg PO DAILY #30 tab Home Medications: Medication Instructions Recorded Confirmed Type HumaLOG [HumaLOG Vial] 0 unit SC ASDIR 09/23/20 09/23/20 History Carvedilol [Coreg] 12.5 mg PO BID #60 tablet 09/25/20 Rx Ferrous Sulfate [Feosol] 325 mg PO BID-WM #60 tab 09/25/20 Rx Furosemide [Lasix] 20 mg PO DAILY #30 tab 09/25/20 Rx Insulin Glargine,Hum.Rec.Anlog 15 units SQ HS #30 09/25/20 09/23/20 Rx [Lantus] NIFEdipine [Adalat cc] 60 mg PO DAILY #30 tablet.er 09/25/20 Rx hydrALAZINE [Apresoline] 25 mg PO TID #90 tab 09/25/20 Rx Allergies: No Known Drug Allergies Allergy (Verified 09/23/20 11:26) - Discharge Instructions Activity:: Activity as Tolerated Nourishment:: Heart Healthy Diet - Follow up Plan Referrals: Cardiac Rehab - [place] [Outside] - 7 Days (Your doctor has ordered outpatient cardiac rehab for you to begin within 1-2 weeks after you go home from the hospital. The location nearest to you is the [facility]. The front office in [place] will call you in 3-5 days to get you scheduled for your evaluation. If you do not receive a call, please reach out to them at [phone] and request an appointment. Should you have any trouble or need assistance, please call the cardiac rehab main line in [place] at [phone].) Luigi Fermin MD [Primary Care Provider] - 7 Days (Call and schedule a follow up appointment within 7 days. ) Disposition: HOME Quality - Care Measures CORE MEASURES:: N/A
[2020-09-26] MEDS ORDERED: Potassium Chloride 10 MEQ TAB PO SCH (08:00)
[2020-09-26] MEDS ORDERED: Furosemide 20 MG TAB PO SCH (09:00)
== END 2020-09-25 18:39 | disposition home or self-care (01) | DRG 682 ==
LOC: ERS 21:19 → ERHOLD 23:28 → 2NO 09-23 15:05
PROVIDERS: ADMIT Student in an Organized Health Care Education/Training Program; ATTEND Student in an Organized Health Care Education/Training Program
DX: N17.9 Acute kidney failure, unspecified (principal); I50.41 Acute combined systolic (congestive) and diastolic (congestive) heart failure; I13.0 Hypertensive heart and chronic kidney disease with heart failure and stage 1 through stage 4 chronic kidney disease, or unspecified chronic kidney disease; E87.2 Acidosis; Z20.822 Contact with and (suspected) exposure to COVID-19; N18.9 Chronic kidney disease, unspecified; D50.9 Iron deficiency anemia, unspecified; E11.22 Type 2 diabetes mellitus with diabetic chronic kidney disease; E11.649 Type 2 diabetes mellitus with hypoglycemia without coma; Z79.4 Long term (current) use of insulin; Z79.899 Other long term (current) drug therapy
CPT/HCPCS: 36415; 36416; 71045; 76770; 80048; 80061; 80069; 80076; 80306; 82306; 82550; 82570; 82728; 83010; 83036; 83540; 83550; 83615; 83735; 83880; 83970; 84155; 84156; 84300; 84443; 84484; 84703; 85025; 85046; 85610; 85730; 86160; 86225; 86235; 86376; 86769; 86850; 86900; 86901; 93306; 93798; 96374; 97139; J0360; J1815; J1940; J2405; J2916; J3490

== ENCOUNTER 2023-03-23 08:13 | Inpatient (IN) | payer MEDICARE, MEDICAID ==
[2023-03-23 08:42] LABS: #Basophils 0.1 thou/uL (0.0-0.2); #Eosinphils 0.2 thou/uL (0.0-0.7); #Monocytes 0.3 thou/uL (0.11-0.59); #Neutrophils 7.4 thou/uL (1.40-6.50); %Basophils 0.9 % (0.0-1.0); %Eosinophils 1.8 % (0.0-10.0); %Monocytes 3.4 % (0.0-10.0); %Neutrophils 84.3 % (42.0-75.0); Hemoglobin 10.6 g/dL (12.0-16.0); Mean Corpuscular HGB CONC 31.2 g/dL (32.0-36.0); Mean Corpuscular Volume 89.9 fl (78.0-98.0); Mean Platelet Volume 11.6 fL (7.4-10.4); Platelet Count 236 10x3/uL (130-400); RBC Distribution Width 17.3 % (11.5-14.5); Red Blood Cell (RBC) Count 3.78 mill/uL (4.20-5.40); White Blood Cell (WBC) Count 8.8 10x3/uL (4.8-10.8)
[2023-03-23 09:07] LABS: ALT (SGPT) 19 U/L (8-55); AST (SGOT) 16 U/L (5-34); Albumin 3.5 g/dL (3.5-5.0); Alkaline Phosphatase 74 U/L (40-110); Anion Gap 23 mmol/L (10-20); BUN (Urea Nitrogen) 54 mg/dL (7.0-18.7); Bilirubin, Total 0.6 mg/dL (0.2-1.2); Calc. Creatinine Clearance 0 mL/min (70-130); Calcium 10.2 mg/dL (7.8-10.44); Carbon Dioxide 20 mmol/L (22-29); Chloride 100 mmol/L (98-107); Estimated GFR 3; Globulin 4.2 g/dL (2.4-3.5); Glucose 108 mg/dL (70-105); Lipase 27 U/L (8-78); Potassium 4.3 mmol/L (3.5-5.1); Protein, Total 7.7 g/dL (6.0-8.3); Sodium 139 mmol/L (136-145)
[2023-03-23 09:13] LABS: BHCG - Serum Negative (NEGATIVE); Pregs Control Background? CLEAR/WHITE (CLR/WHITE); Pregs Control Bar Appear? YES (CONTROL BAR)
[2023-03-23 09:30] LABS: CKMB 15.7 ng/mL (0-6.6)
[2023-03-23] MEDS ORDERED: Metoclopramide HCl 10 MG/2 ML VIAL ONE (09:39)
[2023-03-23] MEDS ORDERED: Aspirin 325 MG TAB ONE (09:39)
[2023-03-23] MEDS ORDERED: hydrALAZINE 20 MG/ML VIAL ONE (09:39)
[2023-03-23] MEDS ORDERED: hydrALAZINE 20 MG/ML VIAL SLOW IVP SCH (10:00)
[2023-03-23] MEDS ORDERED: Aspirin 325 MG TAB PO SCH (10:00)
[2023-03-23] MEDS ORDERED: Labetalol HCl 100 MG TAB PO SCH (10:00)
[2023-03-23] MEDS ORDERED: Metoclopramide HCl 10 MG/2 ML VIAL IVP SCH (10:00)
[2023-03-23] MEDS ORDERED: NIFEdipine XL 60 MG TAB PO SCH (10:00)
[2023-03-23] MEDS ORDERED: Labetalol HCl 100 MG/20 ML VIAL ONE (11:15)
[2023-03-23] MEDS ORDERED: Iopamidol-370 76% 500 ML MDV (1 ML CHARGE) ONE (11:23)
[2023-03-23] MEDS ORDERED: niCARdipine 25 MG/10 ML SDV ONE (11:53)
[2023-03-23] MEDS ORDERED: SODIUM CHLORIDE 0.9% IVPB SCH (12:15)
[2023-03-23] MEDS ORDERED: NICARDIPINE IVPB SCH (12:15)
[2023-03-23] MEDS ORDERED: niCARdipine 25 MG in Sodium Chloride 0.9% 250 ML 250 ML IVPB SCH (12:30)
[2023-03-23 13:03] LABS: Troponin I 0.082 ng/mL (< 0.028)
[2023-03-23] MEDS ORDERED: Metoclopramide HCl 10 MG TAB PO PRN (14:50)
[2023-03-23] MEDS ORDERED: Dextrose 5% in Water 1,000 ML IV PRN (14:50)
[2023-03-23] MEDS ORDERED: Glucagon 1 MG/ML KIT IM PRN (14:50)
[2023-03-23] MEDS ORDERED: HumaLOG 300 UNITS/3 ML VIAL SC PRN ×2 (14:50)
[2023-03-23] MEDS ORDERED: Ondansetron ODT 4 MG TAB PO PRN (14:50)
[2023-03-23] MEDS ORDERED: Dextrose 50% Abboject 50 ML SYRINGE SLOW IVP PRN (14:50)
[2023-03-23] MEDS ORDERED: Acetaminophen 325 MG TAB PO PRN (14:50)
[2023-03-23] MEDS: Heparin 5,000 UNITS/ML VIAL SC SCH ×2 (16:46→21:20)
[2023-03-23 17:30] LABS: Troponin I 0.083 ng/mL (< 0.028)
[2023-03-23 19:55] LABS: HBSAg Index 0.13 S/CO (0-0.99); Hep B Core Total Ab Non-Reactive (NonReactive); Hep B Core Total Index 0.17 S/CO (0-0.79); Hep B Surf Ag Non-Reactive S/CO (NonReactive)
[2023-03-23 19:59] LABS: Hep C IgG Ab Non-Reactive S/CO (NonReactive); Hep C Index 0.12 S/CO (0-0.79)
[2023-03-23] MEDS: niCARdipine 25 MG in Sodium Chloride 0.9% 250 ML 250 ML IVPB SCH (21:12)
[2023-03-23] MEDS: Labetalol HCl 100 MG TAB PO SCH (21:13)
[2023-03-23] MEDS: NIFEdipine XL 60 MG TAB PO SCH (21:14)
[2023-03-23 21:19] LABS: HBSAB Concentration Greater than 1000.00 mIU/mL; Hep B Surf AB Reactive (NonReactive)
[2023-03-24] MEDS: niCARdipine 25 MG in Sodium Chloride 0.9% 250 ML 250 ML IVPB SCH ×3 (00:59→10:53)
[2023-03-24 04:11] LABS: #Basophils 0.1 thou/uL (0.0-0.2); #Eosinphils 0.3 thou/uL (0.0-0.7); #Monocytes 0.5 thou/uL (0.11-0.59); #Neutrophils 5.1 thou/uL (1.40-6.50); %Basophils 0.8 % (0.0-1.0); %Eosinophils 4.2 % (0.0-10.0); %Lymphocytes 15.5 % (21.0-51.0); %Neutrophils 72.1 % (42.0-75.0); Hemoglobin 8.9 g/dL (12.0-16.0); Mean Corpuscular HGB CONC 30.5 g/dL (32.0-36.0); Mean Corpuscular Hemoglobin 27.4 pg (27.0-31.0); Mean Corpuscular Volume 89.8 fl (78.0-98.0); Mean Platelet Volume 11.1 fL (7.4-10.4); Platelet Count 212 10x3/uL (130-400); RBC Distribution Width 17.4 % (11.5-14.5); Red Blood Cell (RBC) Count 3.25 mill/uL (4.20-5.40); White Blood Cell (WBC) Count 7.1 10x3/uL (4.8-10.8)
[2023-03-24 04:32] LABS: Anion Gap 20 mmol/L (10-20); BUN (Urea Nitrogen) 54 mg/dL (7.0-18.7); Calc. Creatinine Clearance 7 mL/min (70-130); Calcium 9.3 mg/dL (7.8-10.44); Carbon Dioxide 22 mmol/L (22-29); Chloride 100 mmol/L (98-107); Estimated GFR 3; Glucose 147 mg/dL (70-105); Potassium 4.2 mmol/L (3.5-5.1); Sodium 138 mmol/L (136-145)
[2023-03-24 07:07] VITALS: BMI 29.5
[2023-03-24] MEDS: Labetalol HCl 100 MG TAB PO SCH ×2 (08:05→20:50)
[2023-03-24] MEDS: Heparin 5,000 UNITS/ML VIAL SC SCH ×3 (08:06→20:51)
[2023-03-24] MEDS: NIFEdipine XL 60 MG TAB PO SCH ×2 (08:06→20:51)
[2023-03-24] MEDS: Metolazone 5 MG TAB PO SCH (08:43)
[2023-03-24] MEDS ORDERED: glipiZIDE 5 MG TAB PO SCH (09:30)
[2023-03-24] MEDS ORDERED: Metoclopramide HCl 10 MG TAB PO SCH (10:30)
[2023-03-24] MEDS ORDERED: Metoclopramide 10 MG/10 ML UDCUP PO SCH (10:30)
[2023-03-24] MEDS ORDERED: Labetalol HCl 100 MG TAB PO SCH (13:00)
[2023-03-24] MEDS ORDERED: Torsemide 100 MG TAB PO SCH (13:00)
[2023-03-24] MEDS ORDERED: EPOETIN ALFA-EPBX (ESRD) 10,000 UNITS/ML VIAL SC SCH (14:00)
[2023-03-25 04:51] LABS: #Basophils 0.1 thou/uL (0.0-0.2); #Eosinphils 0.5 thou/uL (0.0-0.7); #Monocytes 0.5 thou/uL (0.11-0.59); #Neutrophils 4.7 thou/uL (1.40-6.50); %Basophils 1.2 % (0.0-1.0); %Eosinophils 7.1 % (0.0-10.0); %Lymphocytes 15.5 % (21.0-51.0); %Monocytes 6.9 % (0.0-10.0); %Neutrophils 68.9 % (42.0-75.0); Hemoglobin 8.6 g/dL (12.0-16.0); Mean Corpuscular HGB CONC 31.3 g/dL (32.0-36.0); Mean Corpuscular Hemoglobin 28.6 pg (27.0-31.0); Mean Corpuscular Volume 91.4 fl (78.0-98.0); Mean Platelet Volume 10.8 fL (7.4-10.4); Platelet Count 189 10x3/uL (130-400); RBC Distribution Width 17.3 % (11.5-14.5); Red Blood Cell (RBC) Count 3.01 mill/uL (4.20-5.40); White Blood Cell (WBC) Count 6.8 10x3/uL (4.8-10.8)
[2023-03-25 05:17] LABS: Anion Gap 21 mmol/L (10-20); BUN (Urea Nitrogen) 48 mg/dL (7.0-18.7); Calc. Creatinine Clearance 7 mL/min (70-130); Calcium 9.1 mg/dL (7.8-10.44); Carbon Dioxide 21 mmol/L (22-29); Chloride 100 mmol/L (98-107); Estimated GFR 3; Glucose 143 mg/dL (70-105); Potassium 4.5 mmol/L (3.5-5.1); Sodium 137 mmol/L (136-145)
[2023-03-25] MEDS ORDERED: Metoclopramide HCl 10 MG TAB PO SCH (09:00)
[2023-03-25] MEDS: Metolazone 5 MG TAB PO SCH (09:59)
[2023-03-25] MEDS: NIFEdipine XL 60 MG TAB PO SCH (09:59)
[2023-03-25] MEDS: Labetalol HCl 100 MG TAB PO SCH (10:00)
[2023-03-25] MEDS: Heparin 5,000 UNITS/ML VIAL SC SCH ×2 (10:01→16:02)
[2023-03-25] MEDS ORDERED: hydrALAZINE 25 MG TAB PO SCH ×2 (11:00→21:00)
[2023-03-25 12:27] VITALS: BP 125/61; TEMP 97.9
[2023-03-26] MEDS ORDERED: Torsemide 100 MG TAB PO SCH (09:00)
== END 2023-03-25 17:10 | disposition home or self-care (01) | DRG 304 ==
LOC: ERS 08:13 → CCU 15:13 → 2NO 03-24 20:45
PROVIDERS: ADMIT Internal Medicine; ATTEND Hospitalist
PROC: 3E1M39Z Irrigation of Peritoneal Cavity using Dialysate, Percutaneous Approach (ICD-10-PCS; principal; 2023-03-23)
DX: I16.9 Hypertensive crisis, unspecified (principal); I50.33 Acute on chronic diastolic (congestive) heart failure; J96.01 Acute respiratory failure with hypoxia; N18.6 End stage renal disease; I16.1 Hypertensive emergency; I31.39 Other pericardial effusion (noninflammatory); E87.20 Acidosis, unspecified; I13.2 Hypertensive heart and chronic kidney disease with heart failure and with stage 5 chronic kidney disease, or end stage renal disease; E11.22 Type 2 diabetes mellitus with diabetic chronic kidney disease; E11.43 Type 2 diabetes mellitus with diabetic autonomic (poly)neuropathy; K31.84 Gastroparesis; E11.21 Type 2 diabetes mellitus with diabetic nephropathy; D63.1 Anemia in chronic kidney disease; K31.89 Other diseases of stomach and duodenum; Z88.8 Allergy status to other drugs, medicaments and biological substances; Z79.899 Other long term (current) drug therapy; Z79.4 Long term (current) use of insulin; Z99.2 Dependence on renal dialysis; Z86.711 Personal history of pulmonary embolism; Z79.01 Long term (current) use of anticoagulants; Z98.890 Other specified postprocedural states
CPT/HCPCS: 36415; 36416; 71045; 71275; 80048; 80053; 82553; 83690; 83880; 84484; 84703; 85025; 86704; 90945; 93005; 93306; 94760; 96365; 96366; 96367; 96375; G0257; J0360; J1644; J2765; J7050; Q5105; Q9967

== ENCOUNTER 2023-08-11 22:43 | Emergency (ER) | payer MEDICARE, MEDICAID ==
[2023-08-11] MEDS ORDERED: HYDROcodone/Acetaminophen 5/325 mg Tablet ONE (23:38)
[2023-08-11 23:58] LABS: #Eosinphils 0.5 thou/uL (0.0-0.7); #Monocytes 0.5 thou/uL (0.11-0.59); #Neutrophils 7.7 thou/uL (1.40-6.50); %Basophils 0.4 % (0.0-1.0); %Eosinophils 5.3 % (0.0-10.0); %Monocytes 5.1 % (0.0-10.0); %Neutrophils 79.9 % (42.0-75.0); Hematocrit 28.5 % (36.0-47.0); Hemoglobin 8.7 g/dL (12.0-16.0); Mean Corpuscular HGB CONC 30.5 g/dL (32.0-36.0); Mean Corpuscular Hemoglobin 27.4 pg (27.0-31.0); Mean Corpuscular Volume 89.6 fl (78.0-98.0); Mean Platelet Volume 10.6 fL (7.4-10.4); Platelet Count 222 10x3/uL (130-400); Red Blood Cell (RBC) Count 3.18 mill/uL (4.20-5.40); White Blood Cell (WBC) Count 9.6 10x3/uL (4.8-10.8)
[2023-08-12 00:10] LABS: BHCG - Serum Negative (NEGATIVE); Pregs Control Background? CLEAR/WHITE (CLR/WHITE); Pregs Control Bar Appear? YES (CONTROL BAR)
[2023-08-12 00:20] LABS: INR-International Normal Ratio 1.1; PTT 28.5 sec (22.9-36.1); Prothrombin Time 14.1 sec (12.0-14.7)
[2023-08-12 00:23] LABS: ALT (SGPT) 14 U/L (8-55); AST (SGOT) 13 U/L (5-34); Albumin 2.8 g/dL (3.5-5.0); Alkaline Phosphatase 94 U/L (40-110); Anion Gap 23 mmol/L (10-20); BUN (Urea Nitrogen) 48 mg/dL (7.0-18.7); Bilirubin, Total 0.3 mg/dL (0.2-1.2); Calc. Creatinine Clearance 0 mL/min (70-130); Calcium 8.6 mg/dL (7.8-10.44); Carbon Dioxide 21 mmol/L (22-29); Chloride 101 mmol/L (98-107); Estimated GFR 3; Glucose 129 mg/dL (70-105); Potassium 5.1 mmol/L (3.5-5.1); Protein, Total 6.8 g/dL (6.0-8.3); Sodium 140 mmol/L (136-145)
[2023-08-12] MEDS ORDERED: Iopamidol 370 76% 100 ML VIAL ONE (14:02)
== END 2023-08-12 04:14 | disposition home or self-care (01) ==
LOC: ERS 22:43
DX: R60.0 Localized edema (principal); I11.0 Hypertensive heart disease with heart failure; I50.9 Heart failure, unspecified; E10.9 Type 1 diabetes mellitus without complications; Z79.4 Long term (current) use of insulin
CPT/HCPCS: 36415; 75635; 80053; 84703; 85025; 85610; 85730; Q9967